=== PATIENT | female | born 1965 | race Caucasian/White ===

== ENCOUNTER 2018-08-30 00:27 | Emergency (ER) | payer OTHER ==
[2018-08-30] MEDS ORDERED: FENTANYL 100MCG/2ML SOL IV ONE (00:30)
[2018-08-30] MEDS ORDERED: ONDANSETRON HCL 4 MG/2 ML SOL IV ONE (00:32)
[2018-08-30 00:42] VITALS: RESP 20; TEMP 97.4
[2018-08-30] MEDS ORDERED: SODIUM CHLORIDE 0.9% 1000ML 1,000 ML IV SCH (00:45)
[2018-08-30] MEDS ORDERED: CEFTRIAXONE 1 GM PDS 1 GM in SODIUM CHLORIDE 0.9% 50 ML 50 ML IV ONE (01:06)
[2018-08-30] MEDS ORDERED: FENTANYL 100MCG/2ML SOL ONE (01:12)
[2018-08-30 02:47] LABS: INR 1.33 (0.86-1.12)
[2018-08-30 02:53] LABS: AMYLASE 38 IU/L (25-115)
[2018-08-30 03:02] VITALS: O2SAT 95
[2018-08-30 03:05] LABS: APPEARANCE,URINE Clear; BILIRUBIN,URINE 3+ (NEGATIVE); COLOR,URINE Orange; GLUCOSE, URINE (UA) TRACE (NEGATIVE); KETONES,URINE NEGATIVE (NEGATIVE); LEUKOCYTE ESTERASE ,URINE NEGATIVE (NEGATIVE); NITRATE,URINE NEGATIVE (NEGATIVE); OCCULT BLOOD,URINE 1+ (NEG-TRACE); PH,URINE 5.5
[2018-08-30 03:18] LABS: BACTERIA TRACE (< 1+); CRYSTALS NEGATIVE (0-3 AVE/HPF); EPITHELIAL CELLS 0-1 (SQUAMOUS); ICTOTEST,URINE POSITIVE (NEGATIVE); RBC,URINE NEG (0-3AV/HPF); WBC,URINE 0-2 (0-5AV/HPF)
[2018-08-30 05:20] VITALS: BP 118/79; PULSE 81
== END 2018-08-30 04:28 | disposition short-term general hospital (02) | DRG 434 ==
LOC: ED 00:27
DX: K70.31 Alcoholic cirrhosis of liver with ascites (principal)
CPT/HCPCS: 74176; 81001; 82150; 85610; 85651; 96374; 99284; 99285; J3010

== ENCOUNTER 2018-09-11 10:59 | Outpatient (CLI) | payer OTHER | END 2018-09-11 11:00 | disposition home or self-care (01) | DRG 556 | LOC: CONVCARE 10:59 | PROVIDERS: ATTEND Orthopaedic Surgery | DX: M25.571 Pain in right ankle and joints of right foot (principal) | CPT/HCPCS: 73590 ==